=== PATIENT | male | born 1980 | race Caucasian/White ===

== ENCOUNTER 2021-05-24 17:48 | Emergency (ER) | payer MEDICARE, MEDICAID ==
[~2021-05-24] VITALS: Ht 170.2 cm; Wt 79.4 kg
[2021-05-24 23:23] VITALS: BP 124/82
[2021-05-24] MEDS ORDERED: KETOROLAC TROMETH 60MG/2ML VIAL IM ONE (23:30)
== END 2021-05-24 23:46 | disposition home or self-care (01) ==
LOC: ER 17:50
DX: K02.9 Dental caries, unspecified (principal)
CPT/HCPCS: 96372; 99283; J1885

== ENCOUNTER 2021-09-17 13:52 | Emergency (ER) | payer MEDICARE, MEDICAID ==
[~2021-09-17] VITALS: Ht 170.2 cm; Wt 79.4 kg
[2021-09-17 17:20] VITALS: BP 132/84
[2021-09-17 18:20] LABS: Urine Bacteria FEW /hpf (None Seen); Urine Blood 2+ /uL (Negative); Urine Specific Gravity 1.009 (1.001-1.035); Urine WBC 22 /hpf (0 - 3)
== END 2021-09-17 19:07 | disposition home or self-care (01) ==
LOC: ER 13:52
DX: N39.0 Urinary tract infection, site not specified (principal)
CPT/HCPCS: 76856; 76942; 81001; 99284; A4223; C1729; C1769; C2625

== ENCOUNTER 2021-09-23 12:46 | Emergency (ER) | payer MEDICARE, MEDICAID ==
[~2021-09-23] VITALS: Ht 170.2 cm; Wt 79.4 kg
[2021-09-23] MEDS ORDERED: ONDA-144 PO (14:49)
[2021-09-23 16:31] VITALS: BP 140/79
== END 2021-09-23 16:35 | disposition home or self-care (01) ==
LOC: ER 12:46
DX: R11.2 Nausea with vomiting, unspecified (principal); Z48.00 Encounter for change or removal of nonsurgical wound dressing

== ENCOUNTER 2021-09-30 20:53 | Emergency (ER) | payer MEDICARE, MEDICAID ==
[~2021-09-30] VITALS: Ht 170.2 cm; Wt 79.4 kg
[~2021-09-30 20:53] MED LIST: ONDA-144 PO
[2021-10-01 07:52] VITALS: BP 134/76
== END 2021-10-01 08:34 | disposition home or self-care (01) ==
LOC: ER 20:57
DX: T83.198A Other mechanical complication of other urinary devices and implants, initial encounter (principal); Y92.89 Other specified places as the place of occurrence of the external cause

== ENCOUNTER 2021-10-16 13:13 | Emergency (ER) | payer MEDICARE, MEDICAID ==
[~2021-10-16] VITALS: Ht 170.2 cm; Wt 81.6 kg
[2021-10-16 13:16] VITALS: BP 129/84
== END 2021-10-16 13:55 | disposition left against medical advice (07) ==
LOC: ER 13:13
DX: Z46.6 Encounter for fitting and adjustment of urinary device (principal); Z53.21 Procedure and treatment not carried out due to patient leaving prior to being seen by health care provider

== ENCOUNTER 2021-11-08 19:05 | Emergency (ER) | payer MEDICARE, MEDICAID ==
[~2021-11-08] VITALS: Ht 170.2 cm; Wt 81.6 kg
[2021-11-08 19:08] VITALS: BP 119/63
== END 2021-11-08 20:08 | disposition home or self-care (01) ==
LOC: ER 19:05
DX: T83.518A Infection and inflammatory reaction due to other urinary catheter, initial encounter (principal)

== ENCOUNTER 2022-08-26 11:02 | Emergency (ER) | payer MEDICARE, MEDICAID ==
[~2022-08-26] VITALS: Ht 170.2 cm; Wt 83.2 kg
[2022-08-26] MEDS ORDERED: ERY05OO OP (13:56)
[2022-08-26 15:12] VITALS: BP 125/90
== END 2022-08-26 13:57 | disposition home or self-care (01) ==
LOC: ER 11:02
DX: H00.012 Hordeolum externum right lower eyelid (principal)

== ENCOUNTER 2022-09-17 14:50 | Emergency (ER) | payer MEDICARE, MEDICAID ==
[~2022-09-17] VITALS: Ht 170.2 cm; Wt 82.6 kg
[~2022-09-17 14:50] MED LIST changes: +ERY05OO OP
[2022-09-17 15:59] VITALS: BP 126/79
[2022-09-17] MEDS ORDERED: BENZ100C19 PO ×2 (17:39→17:54)
[2022-09-17] MEDS ORDERED: IBUP800T26 PO ×2 (17:39→17:54)
[2022-09-17] MEDS ORDERED: LORA-483 GT ×2 (17:39→17:54)
== END 2022-09-17 17:58 | disposition home or self-care (01) ==
LOC: ER 14:50
DX: J02.8 Acute pharyngitis due to other specified organisms (principal); Z20.822 Contact with and (suspected) exposure to COVID-19
CPT/HCPCS: 36415; 87070; 87426; 87804; 87880

== ENCOUNTER 2023-02-11 19:58 | Emergency (ER) | payer MEDICARE, MEDICAID ==
[~2023-02-11] VITALS: Ht 170.2 cm; Wt 82.7 kg
[~2023-02-11 19:58] MED LIST changes: +BENZ100C19 PO; +IBUP-1455 PO; +LORA-483 GT
[2023-02-11 20:56] VITALS: BP 133/76
[2023-02-12] MEDS ORDERED: AMOX500T3 PO (00:28)
[2023-02-12] MEDS ORDERED: ONDANSETRON ODT 4 MG TAB PO ONE (00:30)
== END 2023-02-12 00:59 | disposition home or self-care (01) ==
LOC: ER 20:01
DX: J03.90 Acute tonsillitis, unspecified (principal); F41.9 Anxiety disorder, unspecified; F17.210 Nicotine dependence, cigarettes, uncomplicated; Z79.899 Other long term (current) drug therapy
CPT/HCPCS: 71045; 99283; Q0162

== ENCOUNTER 2023-09-09 19:22 | Inpatient (IN) | payer OTHER, MEDICAID ==
[~2023-09-09] VITALS: Ht 170.2 cm; Wt 180.0 kg
[~2023-09-09 19:22] MED LIST changes: +AMOX500T3 PO
[2023-09-09] MEDS ORDERED: IBUPROFEN 800 MG TAB PO ONE (19:45)
[2023-09-09] MEDS ORDERED: HYDROcodone-ACET 10/325MG TAB PO ONE (20:15)
[2023-09-09 22:38] LABS: Basophils # (auto) 0 10 ^3/uL (0-0.2); Basophils % (auto) 0.2 % (0.0-2.0); Eosinophils # (auto) 0 10 ^3/uL (0-0.8); Eosinophils % (auto) 0.1 % (0.0-7.0); Hematocrit 41.1 % (41.0-53.0); Hemoglobin 13.6 g/dL (13.5-17.5); Lymphocytes # (auto) 1.3 10 ^3/uL (0.4-5.4); Lymphocytes % (auto) 9.3 % (10.0-50.0); Mean Corpuscular Hemoglobin 30.3 pg (28.0-32.0); Mean Corpuscular Hgb Conc. 33.1 g/dL (32.0-36.0); Mean Corpuscular Volume 91.7 fL (80.0-100.0); Monocytes # (auto) 0.9 10 ^3/uL (0-1.3); Monocytes % (auto) 6.1 % (0.0-12.0); Neutrophils # (auto) 11.8 10 ^3/uL (1.6-8.6); Neutrophils % (auto) 84.3 % (37.0-80.0); Red Blood Cells 4.48 10^6/uL (4.5-5.90); Red Cell Distribution Width 13.2 % (11.8-14.3)
[2023-09-09 22:59] LABS: Alanine Aminotransferase 32 U/L (7-40); Albumin 4.7 g/dL (3.2-4.8); Alkaline Phosphatase 58 U/L (46-116); Anion Gap 13 (5-15); Aspartate Aminotransferase 24 U/L (13-40); BUN/Creatinine Ratio 10.9 (10.0-20.0); Bilirubin, Total 0.2 mg/dL (0.2-1.0); Blood Urea Nitrogen 11 mg/dL (9-23); Calcium 9.6 mg/dL (8.5-10.1); Carbon Dioxide 21 mmol/L (20-30); Chloride 104 mmol/L (98-107); Glucose 120 mg/dL (74-106); Sodium 138 mmol/L (136-145)
[2023-09-09] MEDS ORDERED: ACETAMINOPHEN 325 MG TAB PO PRN (23:00)
[2023-09-09] MEDS ORDERED: ONDANSETRON HCL 4 MG/2 ML VIAL IV PRN (23:00)
[2023-09-10] MEDS: HYDROcodone-ACET 5/325MG TAB PO PRN ×2 (02:59→11:52)
[2023-09-10 05:00] VITALS: BP 138/81; PULSE 84; RESP 19; TEMP 98.4; O2SAT 95
[2023-09-10] MEDS ORDERED: LEVOTHYROXINE SODIUM 25 MCG TAB PO SCH (07:00)
[2023-09-10 08:00] VITALS: PULSE 98; RESP 18
[2023-09-10 08:23] LABS: Basophils # (auto) 0 10 ^3/uL (0-0.2); Basophils % (auto) 0.4 % (0.0-2.0); Eosinophils # (auto) 0 10 ^3/uL (0-0.8); Eosinophils % (auto) 0.4 % (0.0-7.0); Hematocrit 37.5 % (41.0-53.0); Hemoglobin 12.7 g/dL (13.5-17.5); Lymphocytes # (auto) 1.4 10 ^3/uL (0.4-5.4); Lymphocytes % (auto) 13.4 % (10.0-50.0); Mean Corpuscular Hemoglobin 30.9 pg (28.0-32.0); Mean Corpuscular Volume 90.9 fL (80.0-100.0); Monocytes # (auto) 1.2 10 ^3/uL (0-1.3); Monocytes % (auto) 11.1 % (0.0-12.0); Neutrophils # (auto) 7.7 10 ^3/uL (1.6-8.6); Neutrophils % (auto) 74.7 % (37.0-80.0); Red Blood Cells 4.12 10^6/uL (4.5-5.90); Red Cell Distribution Width 13.4 % (11.8-14.3); White Blood Cell 10.4 10^3/uL (4.4-10.8)
[2023-09-10 08:33] LABS: Chloride 105 mmol/L (98-107); Potassium 3.9 mmol/L (3.5-5.1); Sodium 138 mmol/L (136-145)
[2023-09-10 08:34] LABS: Anion Gap 9 (5-15); Carbon Dioxide 24 mmol/L (20-30)
[2023-09-10 08:35] LABS: Calcium 9.1 mg/dL (8.5-10.1)
[2023-09-10 08:39] LABS: Glucose 99 mg/dL (74-106)
[2023-09-10 08:40] LABS: BUN/Creatinine Ratio 12.5 (10.0-20.0); Blood Urea Nitrogen 11 mg/dL (9-23)
[2023-09-10 09:00] VITALS: BP 149/83; PULSE 98; RESP 18; TEMP 98.3; O2SAT 95
[2023-09-10] MEDS ORDERED: FLUoxetine HCL 20 MG CAP PO SCH (10:00)
[2023-09-10 11:21] LABS: Magnesium 1.9 mg/dL (1.6-2.6)
[2023-09-10 13:52] VITALS: BP 141/78; PULSE 86; RESP 16; TEMP 98; O2SAT 94
[2023-09-10 16:26] VITALS: BP 145/82; PULSE 93; RESP 19; TEMP 98.9; O2SAT 93
== END 2023-09-10 20:45 | disposition home or self-care (01) | DRG 563 ==
LOC: ER 19:22 → OVERFLOW 22:51 → CENTRAL 09-10 03:22
PROVIDERS: ADMIT Internal Medicine; ATTEND Internal Medicine
DX: S52.122A Displaced fracture of head of left radius, initial encounter for closed fracture (principal); S52.121A Displaced fracture of head of right radius, initial encounter for closed fracture; F20.9 Schizophrenia, unspecified; F17.210 Nicotine dependence, cigarettes, uncomplicated; F41.9 Anxiety disorder, unspecified; E03.9 Hypothyroidism, unspecified; R56.9 Unspecified convulsions; W05.2XXA Fall from non-moving motorized mobility scooter, initial encounter; Y93.89 Activity, other specified; Y92.89 Other specified places as the place of occurrence of the external cause; Y99.8 Other external cause status
CPT/HCPCS: 36415; 71045; 73080; 80048; 80053; 83036; 83735; 84443; 84484; 85025; G0378

== ENCOUNTER → 2023-12-22 | Outpatient (CLI) | payer MEDICARE, MEDICAID ==
[~2023-12-22] MED LIST changes: +ALBUAER3 IN; +NABU-72 PO; +PRED20TA2 PO; +ZOFR4T PO
[2023-12-22 15:55] LABS: Urine Bacteria None Seen /hpf (None Seen)
[2023-12-22 16:16] LABS: Urine Blood Negative /uL (Negative); Urine Clarity Clear (Clear); Urine Color Light-Yellow (Yellow); Urine Protein, UAD Negative (Negative); Urine Specific Gravity 1.012 (1.001-1.035); Urine Urobilinogen Normal (Negative); Urine WBC 2 /hpf (0 - 3); Urine pH 5.5 (5.0-9.0)
[2023-12-22 16:38] LABS: Alanine Aminotransferase 26 U/L (7-40); Alkaline Phosphatase 65 U/L (46-116); Anion Gap 5 (5-15); Aspartate Aminotransferase 16 U/L (13-40); BUN/Creatinine Ratio 10.8 (10.0-20.0); Blood Urea Nitrogen 11 mg/dL (9-23); Calcium 9.8 mg/dL (8.7-10.4); Carbon Dioxide 28 mmol/L (20-30); Chloride 105 mmol/L (98-107); Glucose 96 mg/dL (74-106); Potassium 3.8 mmol/L (3.5-5.1); Sodium 138 mmol/L (136-145); Uric Acid 6.3 mg/dL (3.7-9.2)
[2023-12-22 16:39] LABS: Albumin 4.6 g/dL (3.2-4.8); Bilirubin, Total 0.3 mg/dL (0.2-1.0); Total Protein 7.2 g/dL (5.7-8.2)
[2023-12-22 16:42] LABS: Free T4 (Free Thyroxine) 1.3 ng/dL (0.89-1.76)
[2023-12-22 16:52] LABS: Triglycerides 205 mg/dL (< 150)
[2023-12-22 16:53] LABS: LDL Cholesterol 137 mg/dL (< 100)
[2023-12-22 16:54] LABS: Cholesterol 191 mg/dL (< 200); HDL Cholesterol 33 mg/dL (40-59)
[2023-12-22 17:00] LABS: Folate (Folic Acid) 42.69 ng/mL (>5.38)
== END | disposition home or self-care (01) ==
LOC: LAB 15:35
PROVIDERS: ATTEND Internal Medicine
DX: E61.2 Magnesium deficiency (principal); R78.89 Finding of other specified substances, not normally found in blood; E78.9 Disorder of lipoprotein metabolism, unspecified; R68.89 Other general symptoms and signs; R94.6 Abnormal results of thyroid function studies; E79.0 Hyperuricemia without signs of inflammatory arthritis and tophaceous disease; R82.90 Unspecified abnormal findings in urine; R82.991 Hypocitraturia; E85.9 Amyloidosis, unspecified; R82.79 Other abnormal findings on microbiological examination of urine; D51.9 Vitamin B12 deficiency anemia, unspecified; R73.09 Other abnormal glucose; E55.9 Vitamin D deficiency, unspecified
CPT/HCPCS: 36415; 80053; 80061; 81001; 82306; 82607; 82746; 83036; 84439; 84443; 84550; 87086

== ENCOUNTER 2024-01-01 11:58 | Emergency (ER) | payer MEDICARE, MEDICAID ==
[~2024-01-01] VITALS: Ht 170.2 cm; Wt 82.6 kg
[~2024-01-01 11:58] MED LIST changes: -ALBUAER3 IN; -NABU-72 PO; -PRED20TA2 PO; -ZOFR4T PO
[2024-01-01 13:32] VITALS: BP 131/84; PULSE 98; RESP 18; TEMP 98.9; O2SAT 97
[2024-01-01] MEDS: cefTRIAXone SOD 1,000 MG VL IM ONE (14:10)
[2024-01-01] MEDS: methylPREDNISolone SOD SUCC 125 MG/2 ML VL IM ONE (14:10)
[2024-01-01] MEDS ORDERED: ZOFR4T PO (14:23)
== END 2024-01-01 14:30 | disposition home or self-care (01) ==
LOC: ER 11:58
DX: J03.90 Acute tonsillitis, unspecified (principal); F17.210 Nicotine dependence, cigarettes, uncomplicated
CPT/HCPCS: 96372; 99284; J0696; J2930

== ENCOUNTER 2024-01-03 10:21 | Emergency (ER) | payer BC, MEDICAID ==
[~2024-01-03] VITALS: Ht 170.2 cm; Wt 85.2 kg
[~2024-01-03 10:21] MED LIST changes: +ZOFR4T PO
[2024-01-03] MEDS ORDERED: ALBUAER3 IN (14:53)
[2024-01-03] MEDS ORDERED: NABU-72 PO (14:53)
[2024-01-03] MEDS ORDERED: PRED20TA2 PO (14:53)
[2024-01-03] MEDS: ACETAMINOPHEN 500 MG TAB PO ONE (17:14)
[2024-01-03 17:31] VITALS: BP 121/71; PULSE 87; RESP 16; TEMP 98.7; O2SAT 97
== END 2024-01-03 17:15 | disposition home or self-care (01) ==
LOC: ER 10:21
DX: J03.90 Acute tonsillitis, unspecified (principal); F17.210 Nicotine dependence, cigarettes, uncomplicated; Z76.0 Encounter for issue of repeat prescription

== ENCOUNTER 2024-07-10 02:35 | Inpatient (IN) | payer BC, MEDICAID ==
[~2024-07-10] VITALS: Ht 170.2 cm; Wt 86.7 kg
[2024-07-10] VITALS (7 sets, daily range): BP systolic 115; BP diastolic 69; PULSE 75–123; RESP 16–22; TEMP 98.8; O2SAT 96–100
[~2024-07-10 02:35] MED LIST changes: +ALBUAER3 IN; +NABU-72 PO; +PRED20TA2 PO
[2024-07-10] MEDS: ALBUTEROL SULF 2.5 MG/0.5ML(0.5%) NEB SOLN NEB ONE (02:55)
[2024-07-10] MEDS: SODIUM CHLORIDE 0.9% 1,000 ML IV ONE (03:10)
[2024-07-10 03:14] LABS: Basophils # (auto) 0 10 ^3/uL (0-0.2); Basophils % (auto) 0.3 % (0.0-2.0); Eosinophils # (auto) 0.3 10 ^3/uL (0-0.8); Eosinophils % (auto) 2.8 % (0.0-7.0); Hematocrit 39.5 % (41.0-53.0); Hemoglobin 13.8 g/dL (13.5-17.5); Mean Corpuscular Hemoglobin 31.8 pg (28.0-32.0); Mean Corpuscular Hgb Conc. 34.8 g/dL (32.0-36.0); Mean Corpuscular Volume 91.3 fL (80.0-100.0); Monocytes # (auto) 0.8 10 ^3/uL (0-1.3); Monocytes % (auto) 8.7 % (0.0-12.0); Neutrophils % (auto) 66.2 % (37.0-80.0); Nucleated Red Blood Cells % 0.1 %; Platelet Count (auto) 286 10^3/uL (140-450); Red Blood Cells 4.33 10^6/uL (4.5-5.90); Red Cell Distribution Width 12.7 % (11.8-14.3)
[2024-07-10 03:17] LABS: Chloride 105 mmol/L (98-107); Potassium 3.6 mmol/L (3.5-5.1); Sodium 138 mmol/L (136-145)
--- NOTE | 2024-07-10 03:17 | ED.PDOC ---
History of Present Illness HPI Comments 44 year old male came to ER via EMS due to shortness of breath. Patient denies any medical problems, states he just had his dinner at 1800 hours then he started having shortness of breath which progressively worsened. Denies any acute chest pains, nausea or vomiting. On scene, patient saturating at 97% on room air and tachycardic at 120's bpm Chief Complaint: Shortness of Breath Time Seen by MD: 03:16 Primary Care Provider: JOSELINE Reviewed Notes: Nurses Notes Allergies: Coded Allergies: NO KNOWN ALLERGIES (Unverified , 05/24/21) Home Meds Active Scripts Albuterol Sulfate (VENTOLIN MDI) 90 Mcg Ih, 90 MCG IN Q4HPRN PRN, #1 INH Prov:EBEN PEREZP 01/03/24 Nabumetone (Nabumetone) 500 Mg Tab, 1 TAB PO BID PRN, #30 TAB Prov:EBEN PEREZ 01/03/24 Prednisone (Prednisone) 20 Mg Tab, 40 MG PO DAILY for 5 Days, #10 MG Prov:EBEN PEREZ 01/03/24 Ondansetron Odt 4MG Tab (ZOFRAN PO) 4 Mg Tb, 4 MG PO BID, #20 TAB ODT TAB-DISSOLVE IN MOUTH, THEN SWALLOW Prov:LORRAINE PECK PA 01/01/24 Amoxicillin Trihydrate (Amoxicillin) 500 Mg Tab, 1 TAB PO BID for 10 Days, #20 TAB 0 Refills Prov:CONSUELO PHAN 02/12/23 Ibuprofen Micronized (Ibuprofen) 800 Mg Tab, 800 MG PO Q8HPRN PRN, #30 TAB Prov:ALICIA DIGGS PAC 09/17/22 Benzonatate (Tessalon Perles) 100 Mg Cap, 1 CAP PO TID, #21 CAP Prov:ALICIA DIGGS PAC 09/17/22 Loratadine (CLARITIN TABLET) 10 Mg Tb, 10 MG GT DAILY for 14 Days, #14 TAB Prov:ALICIA DIGGS PAC 09/17/22 Erythromycin (Erythromycin) 5 Mg/Gm Oin, 1 MG OP QID for 10 Days, #1 OIN Prov:TINY NASH NP 08/26/22 Ondansetron (Zofran) 4 Mg Tab, 4 MG PO Q8HP PRN, #10 MG Prov:BRUEC MARTE MD 09/23/21 Information Source: Patient Mode of Arrival: Ambulatory Severity: Moderate Timing: Hours Duration: Since onset Prehospital treatment: None Past Medical History PAST MEDICAL HISTORY: Anxiety Surgical History: Denies all surgeries Family History Family History: Reviewed,noncontributory to illness Social History Smoker: Non-Smoker Alcohol: Denies ETOH Use Drugs: Denies Drug Use Lives In: Home Constitutional: denies: chills, diaphoresis, fatigue, fever, malaise, sweats, weakness, others EENTM: denies: blurred vision, double vision, ear bleeding, ear discharge, ear drainage, ear pain, ear ringing, eye pain, eye redness, hearing loss, mouth pain, mouth swelling, nasal discharge, nose bleeding, nose congestion, nose pain, photophobia, tearing, throat pain, throat swelling, voice changes, others Respiratory: reports: SOB at rest, shortness of breath; denies: cough, hemoptysis, orthopnea, SOB with excertion, stridor, wheezing, others Cardiovascular: denies: chest pain, dizzy spells, diaphoresis, Dyspnea on exertion, edema, irregular heart beat, left arm pain, lightheadedness, palpitations, PND, syncope, others Gastrointestinal: denies: abdomen distended, abdominal pain, blood streaked bowels, constipated, diarrhea, dysphagia, difficulty swallowing, hematemesis, melena, nausea, poor appetite, poor fluid intake, rectal bleeding, rectal pain, vomiting, others Genitourinary: denies: burning, dysuria, flank pain, frequency, hematuria, incontinence, penile discharge, penile sore, pain, testicle pain, testicle swelling, urgency, others Neurological: denies: dizziness, fainting, headache, left sided numbness, left sided weakness, numbness, paresthesia, pre-existing deficit, right sided numbness, right sided weakness, seizure, speech problems, tingling, tremors, weakness, others Musculoskeletal: denies: back pain, gout, joint pain, joint swelling, muscle pain, muscle stiffness, neck pain, others Integumetry: denies: bruises, change in color, change in hair/nails, dryness, laceration, lesions, lumps, rash, wounds, others Allergic/Immunocompromised: denies: Difficulty Healing, Frequent Infections, Hives, Itching, others Hematologic/Lymphatic: denies: anemia, blood clots, easy bleeding, easy bruising, swollen glands, others Endocrine: denies: excessive hunger, excessive sweating, excessive thirst, excessive urination, flushing, intolerance to cold, intolerance to heat, unexplained weight gain, unexplained weight loss, others Psychiatric: reports: anxiety; denies: bipolar disorder, depression, hopeless, panic disorder, schizophrenia, sleepless, suicidal, others Physical Exam General Appearance: No Apparent Distress, Normal HEENT: Normal ENT Inspection, Pharynx Normal, TMs Normal Neck: Full Range of Motion, Non-Tender, Normal, Normal Inspection Respiratory: Chest Non-Tender, Lungs Clear, No Accessory Muscle Use, No Respiratory Distress, Normal Breath Sounds Cardiovascular: No Edema, No JVD, No Murmur, No Gallop, Normal Peripheral Pulses, Tachycardia Breast Exam: Deferred Gastrointestinal: No Organomegaly, Non Tender, No Pulsatile Mass, Normal Bowel Sounds, Soft Genitalia: Deferred Pelvic: Deferred Rectal: Deferred Extremities: No calf tenderness, Normal capillary refill, Normal inspection, Normal range of motion, Non-tender, No pedal edema Musculoskeletal : Apperance: Normal Neurologic: Alert, surveyor instrument assistant II-XII nml as Tested, No Motor Deficits, Normal Affect, Normal Mood, No Sensory Deficits Cerebellar Function: Normal Reflexes: Normal Skin: Dry, Normal Color, Warm Lymphatic: No Adenopathy Was a procedure done? Was a procedure done?: No Differential Dx Considerations may include: anemia, electrolyte imbalance, anxiety, substance abuse, pulmonary emboli, dehydration X-Ray, Labs, Meds, VS Vital Signs Date Time Temp Pulse Resp B/P (MAP) Pulse Ox O2 Delivery O2 Flow Rate FiO2 07/10/24 03:10 123 20 146/83 (104) 99 07/10/24 03:10 123 20 99 Nasal Cannula* 3 32 07/10/24 02:55 22 99 Nasal Cannula* 2 28 07/10/24 02:39 98.6 121 20 146/102 (117) 97 07/10/24 02:38 118 Lab Test 07/10/24 03:50 07/10/24 02:55 Range/Units Urine Color Light-yellow Yellow Urine Clarity Clear Clear Urine pH 6.5 5.0-9.[address] 1.009 1.001-1.035 Urine Protein Negative Negative Urine Ketones Negative Negative Urine Blood Negative Negative /uL Urine Nitrite Negative Negative Urine Bilirubin Negative Negative Urine Urobilinogen Normal Negative mg/dL Urine Leukocyte Esterase 2+ Negative /uL Urine RBC 1 0 - 3 /hpf Urine WBC 19 0 - 3 /hpf Urine Squamous Epithelial Cells Few <5 /hpf Urine Bacteria None seen None Seen /hpf Urine Glucose Normal Normal mg/dL Troponin I High Sensitivity < 3 L < 3 L </=54 ng/L White Blood Count 9.0 4.4-10.8 10^3/uL Red Blood Count 4.33 L 4.5-5.90 10^6/uL Hemoglobin 13.8 13.5-17.5 g/dL Hematocrit 39.5 L 41.0-53.0 % Mean Corpuscular Volume 91.3 80.0-100.0 fL Mean Corpuscular Hemoglobin 31.8 28.0-32.0 pg Mean Corpuscular Hemoglobin Concent 34.8 32.0-36.0 g/dL Red Cell Distribution Width 12.7 11.8-14.3 % Platelet Count 286 140-450 10^3/uL Mean Platelet Volume 8.2 6.9-10.8 fL Neutrophils (%) (Auto) 66.2 37.0-80.0 % Lymphocytes (%) (Auto) 22.0 10.0-50.0 % Monocytes (%) (Auto) 8.7 0.0-12.0 % Eosinophils (%) (Auto) 2.8 0.0-7.0 % Basophils (%) (Auto) 0.3 0.0-2.0 % Neutrophils # (Auto) 6.0 1.6-8.6 10 ^3/uL Lymphocytes # (Auto) 2.0 0.4-5.4 10 ^3/uL Monocytes # (Auto) 0.8 0-1.3 10 ^3/uL Eosinophils # (Auto) 0.3 0-0.8 10 ^3/uL Basophils # (Auto) 0 0-0.2 10 ^3/uL Nucleated Red Blood Cells 0.1 % D-Dimer, Quantitative 0.37 0.0-0.49 mg/L FEU Sodium Level 138 136-145 mmol/L Potassium Level 3.6 3.5-5.1 mmol/L Chloride Level 105 98-107 mmol/L Carbon Dioxide Level 27 20-31 mmol/L Anion Gap 6 5-15 Blood Urea Nitrogen 8 L 9-23 mg/dL Creatinine 1.16 0.700-1.30 mg/dL Glomerular Filtration Rate Calc 80 >90 mL/min BUN/Creatinine Ratio 6.9 L 10.0-20.0 Serum Glucose 144 H 74-106 mg/dL Calcium Level 8.8 8.7-10.4 mg/dL Current Medications Medications (Trade) Dose Ordered Sig/Amaya Route Start Time Stop Time Status Last Admin Sodium Chloride 1,000 ml @ 1,000 mls/hr Q1H ONCE IV 07/10/24 02:45 07/10/24 03:44 DC 07/10/24 03:10 Albuterol (Ventolin Medneb) 5 mg ONCE ONCE NEB 07/10/24 02:45 07/10/24 02:46 DC 07/10/24 02:55 Time of 1ST Reevaluation: 03:11 Reevaluation 1ST: Unchanged Patient Education/Counseling: Diagnosis, Treatment Family Education/Counseling: No Family Present Departure 1 Departure Time of Disposition: 04:49 (Patient presented with acute shortness of breath concerning for acute on chronic COPD Exacerbation, Pneumonia, ACS, CHF, Pneumothorax. Less likely PE, Dissection. Data: 1. I ordered and reviewed the result of at least 3 labs including a CBC, BMP, and Troponin. 2. I independently interpreted the following tests: Chest X-ray shows benign chest .Risk:This patient has a high risk of morbidity due to further diagnostic testing or treatment and may suffer from respiratory or cardiac etiology . Workup reveals a likely lung disease versus cardiac etiology and patient should be admitted for further workup. and possible expert consultation.) Impression: Primary Impression: Shortness of breath Additional Impression: Chest pain Qualified Codes: R07.89 - Other chest pain Disposition: 09 ADMITTED INPATIENT Admit to: Med Surg Condition: Serious Critical Care Note Critical Care Time?: Yes (35 min-critical care time only) Critical care comment: Acute shortness of breath Authorized and Performed by: Farida Barajas MD Total critical care time: Approximately 36 minutes Due to a high probability of clinically significant, life threatening deterioration, the patient required my highest level of preparedness to intervene emergently and I personally spent this critical care time directly and personally managing the patient. This critical care time included obtaining a history; examining the patient; pulse oximetry; ordering and review of studies; arranging urgent treatment with development of a management plan; evaluation of patient's response to treatment; frequent reassessment; and, discussions with other providers. This critical care time was performed to assess and manage the high probability of imminent, life-threatening deterioration that could result in multi-organ failure. It was exclusive of separately billable procedures and treating other patients and teaching time. Please see my other sections and the rest of the note for further information on patient assessment and treatment. Stability Stability form required: No Heart Score Heart Score: Heart Score Response (Comments) Value History N/A 0 EKG N/A 0 Age N/A 0 Risk Factors N/A 0 Troponin N/A 0 Total 0 I personally scribed for FARIDA BARAJAS MD ([email or web address]) on 07/10/24 at 03:17. Electronically submitted by Janak Wyman ([email or web address]). FARIDA BARAJAS MD Jul 10, 2024 03:17
[2024-07-10 03:18] LABS: Anion Gap 6 (5-15); Calcium 8.8 mg/dL (8.7-10.4); Carbon Dioxide 27 mmol/L (20-31)
[2024-07-10 03:23] LABS: BUN/Creatinine Ratio 6.9 (10.0-20.0); Blood Urea Nitrogen 8 mg/dL (9-23); Glucose 144 mg/dL (74-106)
[2024-07-10 04:12] LABS: Urine Bacteria None Seen /hpf (None Seen)
[2024-07-10 04:35] LABS: Urine Blood Negative /uL (Negative); Urine Clarity Clear (Clear); Urine Color Light-Yellow (Yellow); Urine Protein, UAD Negative (Negative); Urine Specific Gravity 1.009 (1.001-1.035); Urine Urobilinogen Normal (Negative); Urine WBC 19 /hpf (0 - 3); Urine pH 6.5 (5.0-9.0)
--- NOTE | 2024-07-10 04:35 | DVH ---
Examination: CXRP Clinical Indication: sob Comparison: None. Technique: Frontal radiograph of the chest was obtained. Findings: Lungs are clear and well expanded with no pulmonary infiltrate or pleural effusion. There is no pneumothorax. The cardiomediastinal silhouette is within normal limits. No acute osseous abnormality is seen. Impression: No acute cardiopulmonary disease is seen. Electronically Signed 07/10/2024 04:26 sOiris Parada
[2024-07-10] MEDS ORDERED: ALBUTEROL SULF 2.5 MG/0.5ML(0.5%) NEB SOLN NEB PRN (10:00)
[2024-07-10] MEDS ORDERED: MORPHINE SULFATE INJ 2 MG/ml SYRG IV PRN (10:00)
[2024-07-10] MEDS ORDERED: ACETAMINOPHEN 325 MG TAB PO PRN (10:00)
--- NOTE | 2024-07-10 10:01 | DVHHP2 ---
History of Present Illness Reason for Visit: Shortness of breath History of Present Illness This 44-year-old male presents in the ED via EMS with a chief complaint of shortness of breath. The patient reports spontaneous shortness of breath right after dinner. At that time the patient's O2 saturation were at 97% on room air and heart rate is in 120s. The patient currently denies chest pain, shortness of breath, difficulty breathing, or other associated symptoms. Past medical history of anxiety and thyroid disease. Past Medical History As stated in HPI Past Surgical History Denies Family History Reviewed, non-contributory to the management of this case. Past Social History The patient lives at home, denies smoking, alcohol or illicit drugs abuse. Review of Systems Constitutional: Yes: Malaise; No: Fever, Chills, Sweats, Weakness, Other Eyes: No: Pain, Vision change, Conjunctivae inflammation, Eyelid inflammation, Other, Redness ENT: No: Ear pain, Ear discharge, Nose pain, Nose discharge, Nose congestion, Mouth pain, Mouth swelling, Throat pain, Throat swelling, Other Respiratory: Shortness of breath; No: Cough, Dry, SOB with excertion, Wheezing, Hemoptysis, Pleuritic Pain, Sputum, Wheezing, Other Cardiovascular: No: Chest Pain, Palpitations, Orthopnea, Paroxysmal Noc. Dyspnea, Edema, Lt Headedness, Other Gastrointestinal: No: Nausea, Vomiting, Abdominal Pain, Diarrhea, Constipation, Melena, Hematochezia, Other Genitourinary: No Dysuria, No Frequency, No Incontinence, No Hematuria, No Retention, No Other Musculoskeletal: No: other, neck pain, shoulder pain, arm pain, back pain, hand pain, leg pain, foot pain Skin: No: Rash, Lesions, Jaundice, Bruising, Other Allergies: Coded Allergies: NO KNOWN ALLERGIES (Unverified , 05/24/21) Exam Vital Signs Vital Signs Date Time Temp Pulse Resp B/P (MAP) Pulse Ox O2 Delivery O2 Flow Rate FiO2 07/10/24 06:00 103 16 125/78 (94) 96 07/10/24 03:10 Nasal Cannula* 3 32 07/10/24 02:39 98.6 General Appearance: Alert, Oriented X3, Cooperative, No acute distress HEENT: Atraumatic, PERRLA, EOMI, Mucous membr. moist/pink Respiratory: Clear to auscultation, Normal air movement Cardiovascular: Regular rate, Normal S1, Normal S2 Abdominal: Normal bowel sounds, Soft, No tenderness Extremities: No clubbing, No cyanosis, No edema, Normal pulses Skin: No rashes, No breakdown, No significant lesion Neuro: Normal speech, Strength at 5/5 X4 ext, Normal tone Psych/Mental Status: Mental status NL Labs/Xrays Labs Test 07/10/24 03:50 07/10/24 02:55 Range/Units Urine Color Light-yellow Yellow Urine Clarity Clear Clear Urine pH 6.5 5.0-9.0 Urine Specific [place] 1.009 1.001-1.035 Urine Protein Negative Negative Urine Ketones Negative Negative Urine Blood Negative Negative /uL Urine Nitrite Negative Negative Urine Bilirubin Negative Negative Urine Urobilinogen Normal Negative mg/dL Urine Leukocyte Esterase 2+ Negative /uL Urine RBC 1 0 - 3 /hpf Urine WBC 19 0 - 3 /hpf Urine Squamous Epithelial Cells Few <5 /hpf Urine Bacteria None seen None Seen /hpf Urine Glucose Normal Normal mg/dL Troponin I High Sensitivity < 3 L </=54 ng/L White Blood Count 9.0 4.4-10.8 10^3/uL Red Blood Count 4.33 L 4.5-5.90 10^6/uL Hemoglobin 13.8 13.5-17.5 g/dL Hematocrit 39.5 L 41.0-53.0 % Mean Corpuscular Volume 91.3 80.0-100.0 fL Mean Corpuscular Hemoglobin 31.8 28.0-32.0 pg Mean Corpuscular Hemoglobin Concent 34.8 32.0-36.0 g/dL Red Cell Distribution Width 12.7 11.8-14.3 % Platelet Count 286 140-450 10^3/uL Mean Platelet Volume 8.2 6.9-10.8 fL Neutrophils (%) (Auto) 66.2 37.0-80.0 % Lymphocytes (%) (Auto) 22.0 10.0-50.0 % Monocytes (%) (Auto) 8.7 0.0-12.0 % Eosinophils (%) (Auto) 2.8 0.0-7.0 % Basophils (%) (Auto) 0.3 0.0-2.0 % Neutrophils # (Auto) 6.0 1.6-8.6 10 ^3/uL Lymphocytes # (Auto) 2.0 0.4-5.4 10 ^3/uL Monocytes # (Auto) 0.8 0-1.3 10 ^3/uL Eosinophils # (Auto) 0.3 0-0.8 10 ^3/uL Basophils # (Auto) 0 0-0.2 10 ^3/uL Nucleated Red Blood Cells 0.1 % D-Dimer, Quantitative 0.37 0.0-0.49 mg/L FEU Sodium Level 138 136-145 mmol/L Potassium Level 3.6 3.5-5.1 mmol/L Chloride Level 105 98-107 mmol/L Carbon Dioxide Level 27 20-31 mmol/L Anion Gap 6 5-15 Blood Urea Nitrogen 8 L 9-23 mg/dL Creatinine 1.16 0.700-1.30 mg/dL Glomerular Filtration Rate Calc 80 >90 mL/min BUN/Creatinine Ratio 6.9 L 10.0-20.0 Serum Glucose 144 H 74-106 mg/dL Calcium Level 8.8 8.7-10.4 mg/dL PROCEDURE(s): CXRP - CHEST PORTABLE REASON: sob ORDER NUMBER(s): [id number], ACCESSION NUMBER(s): [id number] Examination: CXRP Clinical Indication: sob Comparison: None. Technique: Frontal radiograph of the chest was obtained. Findings: Lungs are clear and well expanded with no pulmonary infiltrate or pleural effusion. There is no pneumothorax. The cardiomediastinal silhouette is within normal limits. No acute osseous abnormality is seen. Impression: No acute cardiopulmonary disease is seen. Electronically Signed 07/10/2024 04:26 Osiris Parada Assessment/Plan Assessment/Plan # shortness of breath, possibly 2/2 to Anxiety Admit to medical unit Med neb treatment O2 supplement Consult as necessary # anxiety Continue fluoxetine # hypothyroidism Check TSH Continue with levothyroxine DVT prophylaxis Medical plan discussed with patient and RN Plan discussed with: Patient My Orders Orders - WOODY SOW MASSOTHERAPIST Procedure Category Date Status Time Albuterol Medneb PHA 07/10/24 Transmitted (Ventolin Medneb) 10:00 Admit ADMIT 07/10/24 Transmitted 09:57 Code Status CODE 07/10/24 Transmitted 09:57 Hydrocodone-Acet PHA 07/10/24 Transmitted 5/325mg Tab ([place] 10:00 Enoxaparin Sodium PHA 07/10/24 Transmitted (Lovenox) 10:00 Complete Blood Count LAB 07/11/24 Verified 04:00 Comprehensive LAB 07/11/24 Verified Metabolic Panel 04:00 Cardiac DIET 07/10/24 Transmitted Diet-2gna,Lofat,Lochol Lunch Condition: Fair LUIS M 07/10/24 Transmitted 09:57 Acetaminophen Tablet PHA 07/10/24 Transmitted (Tylenol Tablet) 10:00 Morphine Sulfate PHA 07/10/24 Transmitted Injection 10:00 Date of Service: Jul 10, 2024 Billing Provider: WOODY SOW Common Visit Codes: [id number] INP/OBS CARE (HIGH) WOODY SOW MASSOTHERAPIST Jul 10, 2024 10:01
[2024-07-10] MEDS ORDERED: IPRATROPIUM BROM 0.5 MG/2.5ML INH SOL NEB PRN (10:15)
[2024-07-10] MEDS ORDERED: LEVO137T3 PO (10:20)
[2024-07-10] MEDS ORDERED: FLUO-470 PO (10:20)
--- NOTE | 2024-07-10 10:32 | ECG ---
[facility] Test Date: 2024-07-10 Test Time: 02:38:45 Pat Name: RYDER PAIGE Department: ER Room: [facility]24[facility] Gender: M Evening Or Night Nurse Supervisor: DONOVAN : 1980 Requested By: FARIDA ARSHAD Order Number: [id number] Reading MD: Venu Arango Measurements Intervals [place] Rate: 118 P: 57 ND: 159 QRS: 76 QRSD: 83 T: 11 QT: 327 QTc: 459 Interpretive Statements Sinus tachycardia Ventricular premature complex Aberrant complex Probable left atrial enlargement Electronically Signed On 07-14-2024 14:25:26 PDT by Venu Arango Please click the below link to view image of tracing.
[2024-07-10 10:44] LABS: Triglycerides 265 mg/dL (< 150)
[2024-07-10 10:45] LABS: LDL Cholesterol 71 mg/dL (< 100)
[2024-07-10 10:46] LABS: Cholesterol 131 mg/dL (< 200); HDL Cholesterol 28 mg/dL (40-59)
[2024-07-10] MEDS: IPRATROPIUM BROM 0.5 MG/2.5ML INH SOL NEB SCH (12:54)
[2024-07-10] MEDS: ALBUTEROL SULF 2.5 MG/0.5ML(0.5%) NEB SOLN NEB SCH (12:55)
[2024-07-10] MEDS: ENOXAPARIN SOD 40 MG/0.4 ML SYRINGE SC SCH (12:56)
[2024-07-10] MEDS: HYDROcodone-ACET 5/325MG TAB PO PRN (18:32)
[2024-07-11] VITALS (8 sets, daily range): BP systolic 120–135; BP diastolic 72–79; PULSE 70–85; RESP 17–19; TEMP 97.8–98.4; O2SAT 94–99
[2024-07-11] MEDS: DOCUSATE SOD 100 MG CAP PO SCH (05:14)
[2024-07-11] MEDS: LEVALBUTEROL HCL 1.25 MG/3 ML NEB NEB SCH (05:41)
[2024-07-11 06:33] LABS: Basophils # (auto) 0 10 ^3/uL (0-0.2); Basophils % (auto) 0.1 % (0.0-2.0); Eosinophils # (auto) 0.1 10 ^3/uL (0-0.8); Eosinophils % (auto) 1.7 % (0.0-7.0); Hematocrit 40.8 % (41.0-53.0); Lymphocytes # (auto) 1.5 10 ^3/uL (0.4-5.4); Lymphocytes % (auto) 16.6 % (10.0-50.0); Mean Corpuscular Hemoglobin 31.6 pg (28.0-32.0); Mean Corpuscular Hgb Conc. 34.3 g/dL (32.0-36.0); Mean Corpuscular Volume 92.3 fL (80.0-100.0); Monocytes # (auto) 0.6 10 ^3/uL (0-1.3); Monocytes % (auto) 6.9 % (0.0-12.0); Neutrophils # (auto) 6.7 10 ^3/uL (1.6-8.6); Neutrophils % (auto) 74.7 % (37.0-80.0); Nucleated Red Blood Cells % 0.1 %; Platelet Count (auto) 237 10^3/uL (140-450); Red Blood Cells 4.42 10^6/uL (4.5-5.90); Red Cell Distribution Width 12.8 % (11.8-14.3); White Blood Cell 8.9 10^3/uL (4.4-10.8)
[2024-07-11 06:40] LABS: Alanine Aminotransferase 37 U/L (7-40); Alkaline Phosphatase 57 U/L (46-116); Anion Gap 4 (5-15); Aspartate Aminotransferase 16 U/L (13-40); BUN/Creatinine Ratio 8.7 (10.0-20.0); Bilirubin, Total 0.3 mg/dL (0.2-1.0); Blood Urea Nitrogen 8 mg/dL (9-23); Carbon Dioxide 30 mmol/L (20-31); Chloride 106 mmol/L (98-107); Glucose 91 mg/dL (74-106); Sodium 140 mmol/L (136-145)
[2024-07-11] MEDS ORDERED: PNEUMOCOCCAL VACC POLYS 25 MCG/0.5 ML VIAL IM ONE (13:15)
[2024-07-11] MEDS: INFLUENZA TRIVALENT 2024-2025 0.5 ML INJ IM ONE (13:46)
--- NOTE | 2024-07-11 19:55 | DVHDS2 ---
Discharge Summary Date of Admission Jul 10, 2024 at 09:57 Date of Discharge: Jul 11, 2024 Labs/Diagnostic Data: Laboratory Results Test 07/11/24 05:48 07/10/24 03:50 07/10/24 02:55 White Blood Count 8.9 10^3/uL (4.4-10.8) Red Blood Count 4.42 10^6/uL (4.5-5.90) Hemoglobin 14.0 g/dL (13.5-17.5) Hematocrit 40.8 % (41.0-53.0) Mean Corpuscular Volume 92.3 fL (80.0-100.0) Mean Corpuscular Hemoglobin 31.6 pg (28.0-32.0) Mean Corpuscular Hemoglobin Concent 34.3 g/dL (32.0-36.0) Red Cell Distribution Width 12.8 % (11.8-14.3) Platelet Count 237 10^3/uL (140-450) Mean Platelet Volume 8.4 fL (6.9-10.8) Neutrophils (%) (Auto) 74.7 % (37.0-80.0) Lymphocytes (%) (Auto) 16.6 % (10.0-50.0) Monocytes (%) (Auto) 6.9 % (0.0-12.0) Eosinophils (%) (Auto) 1.7 % (0.0-7.0) Basophils (%) (Auto) 0.1 % (0.0-2.0) Neutrophils # (Auto) 6.7 10 ^3/uL (1.6-8.6) Lymphocytes # (Auto) 1.5 10 ^3/uL (0.4-5.4) Monocytes # (Auto) 0.6 10 ^3/uL (0-1.3) Eosinophils # (Auto) 0.1 10 ^3/uL (0-0.8) Basophils # (Auto) 0 10 ^3/uL (0-0.2) Nucleated Red Blood Cells 0.1 % Sodium Level 140 mmol/L (136-145) Potassium Level 4.0 mmol/L (3.5-5.1) Chloride Level 106 mmol/L (98-107) Carbon Dioxide Level 30 mmol/L (20-31) Anion Gap 4 (5-15) Blood Urea Nitrogen 8 mg/dL (9-23) Creatinine 0.92 mg/dL (0.700-1.30) Glomerular Filtration Rate Calc 106 mL/min (>90) BUN/Creatinine Ratio 8.7 (10.0-20.0) Serum Glucose 91 mg/dL (74-106) Calcium Level 9.0 mg/dL (8.7-10.4) Total Bilirubin 0.3 mg/dL (0.2-1.0) Aspartate Amino Transferase (AST) 16 U/L (13-40) Alanine Aminotransferase (ALT) 37 U/L (7-40) Alkaline Phosphatase 57 U/L (46-116) Total Protein 6.0 g/dL (5.7-8.2) Albumin 4.0 g/dL (3.2-4.8) Urine Color Light-yellow (Yellow) Urine Clarity Clear (Clear) Urine pH 6.5 (5.0-9.0) Urine Specific [place] 1.009 (1.001-1.035) Urine Protein Negative (Negative) Urine Ketones Negative (Negative) Urine Blood Negative /uL (Negative) Urine Nitrite Negative (Negative) Urine Bilirubin Negative (Negative) Urine Urobilinogen Normal mg/dL (Negative) Urine Leukocyte Esterase 2+ /uL (Negative) Urine RBC 1 /hpf (0 - 3) Urine WBC 19 /hpf (0 - 3) Urine Squamous Epithelial Cells Few /hpf (<5) Urine Bacteria None seen /hpf (None Seen) Urine Glucose Normal mg/dL (Normal) Troponin I High Sensitivity < 3 ng/L (</=54) Triglycerides Level 265 mg/dL (< 150) Cholesterol Level 131 mg/dL (< 200) LDL Cholesterol 71 mg/dL (< 100) HDL Cholesterol 28 mg/dL (40-59) D-Dimer, Quantitative 0.37 mg/L FEU (0.0-0.49) Hemoglobin A1c 5.6 % A1C (<5.7) Thyroid Stimulating Hormone (TSH) 1.31 uIU/mL (0.55-4.78) Other Laboratory Tests 07/11/24 05:48 Brief Hx & Hospital Course: This 44-year-old male presents in the ED via EMS with a chief complaint of shortness of breath. The patient reports spontaneous shortness of breath right after dinner. At that time the patient's O2 saturation were at 97% on room air and heart rate is in 120s. The patient currently denies chest pain, shortness of breath, difficulty breathing, or other associated symptoms. Past medical history of anxiety and thyroid disease. All cardiac workup negative Condition at Discharge: Good Final Diagnosis/Problems List SOB non cardiac chest pain Discharge Disposition: Home Discharge Instruct/Medications Diet: Regular Diet comment: Increase fiber intake Activity: No Restrictions, As Tolerated Discharge Statement: "Patient was advised to return to the ER or call 911 if any headaches, dizziness, shortness of breath, chest pain, abdominal pain, bleeding, fevers, or worsening of medical condition. Patient was counseled about treatment plan, medications, possible side effects, patientverbalized understanding. All questions were answered to the best of my ability. This discharge took greater then 30 minutes in planning, reviewing documentation, counseling the patient, and discussing with other team members." ASSESSMENT ASSESSMENT Assessment SOB non cardiac chest pain Date of Service: Jul 11, 2024 Billing Provider: TERESA QUINTERO MD Common Visit Codes: 71501-KTM/OBS DISCH DAY >30min TERESA QUINTERO MD Jul 11, 2024 19:55
== END 2024-07-11 14:30 | disposition home or self-care (01) | DRG 313 ==
LOC: ER 02:35 → EDBD 02:35 → OVERFLOW 09:57 → EAST 07-11 03:15
PROVIDERS: ADMIT Registered Nurse; ATTEND Hospitalist
DX: R07.89 Other chest pain (principal); E03.9 Hypothyroidism, unspecified; F41.9 Anxiety disorder, unspecified; Z79.899 Other long term (current) drug therapy
CPT/HCPCS: 36415; 71045; 80048; 80053; 80061; 81001; 83036; 84443; 84484; 85025; 85379; 87081; 90656; 93005; 94640; 99291; G0378

== ENCOUNTER 2024-09-15 23:44 | Emergency (ER) | payer BC, MEDICAID ==
[~2024-09-15] VITALS: Ht 170.2 cm; Wt 86.0 kg
[~2024-09-15 23:44] MED LIST changes: +FLUO-470 PO; +LEVO137T3 PO
--- NOTE | 2024-09-16 00:02 | ED.PDOC ---
HPI Comments 44-year-old male who came to ER for chest pains. Patient states about 2 hours ago, he developed sudden onset of midsternal chest pains, sharp, nonradiating, associated with shortness of breath, nausea or vomiting. Patient appears very anxious at this time care Chief Complaint: Chest pain Time Seen by MD: 00:00 Primary Care Provider: JOSELINE Reviewed Notes: Nurses Notes, Nuclear Medicine Chief Technologist Notes Allergies: Coded Allergies: NO KNOWN ALLERGIES (Unverified , 05/24/21) Home Meds Active Scripts Albuterol Sulfate (VENTOLIN MDI) 90 Mcg Ih, 90 MCG IN Q4HPRN PRN, #1 INH Prov:EBEN PEREZ [employer] 01/03/24 Nabumetone (Nabumetone) 500 Mg Tab, 1 TAB PO BID PRN, #30 TAB Prov:EBEN PEREZP 01/03/24 Prednisone (Prednisone) 20 Mg Tab, 40 MG PO DAILY for 5 Days, #10 MG Prov:EBEN PEREZP 01/03/24 Ondansetron Odt 4MG Tab (ZOFRAN PO) 4 Mg Tb, 4 MG PO BID, #20 TAB ODT TAB-DISSOLVE IN MOUTH, THEN SWALLOW Prov:LORRAINE PECK PA 01/01/24 Amoxicillin Trihydrate (Amoxicillin) 500 Mg Tab, 1 TAB PO BID for 10 Days, #20 TAB 0 Refills Prov:CONSUELO PHAN 02/12/23 Ibuprofen Micronized (Ibuprofen) 800 Mg Tab, 800 MG PO Q8HPRN PRN, #30 TAB Prov:ALICIA DIGGS PAC 09/17/22 Benzonatate (Tessalon Perles) 100 Mg Cap, 1 CAP PO TID, #21 CAP Prov:ALICIA DIGGS PAC 09/17/22 Loratadine (CLARITIN TABLET) 10 Mg Tb, 10 MG GT DAILY for 14 Days, #14 TAB Prov:ALICIA DIGGS PAC 09/17/22 Erythromycin (Erythromycin) 5 Mg/Gm Oin, 1 MG OP QID for 10 Days, #1 OIN Prov:TINY NASH NP 08/26/22 Ondansetron (Zofran) 4 Mg Tab, 4 MG PO Q8HP PRN, #10 MG Prov:BRUCE MARTE MD 09/23/21 Reported Medications Fluoxetine HCl (Fluoxetine HCl) 20 Mg Cap, 2 CAP PO QAM 07/10/24 Levothyroxine Sodium (Levothyroxine Sodium) 137 Mcg Tab, 1 TAB PO DAILY 07/10/24 Information Source: Patient, Emergency Med Personnel Mode of Arrival: EMS Severity: Moderate Timing: Hours Duration: Intermittent Prehospital treatment: None Location: Substernal Radiation: No Radiation Quality: Sharp, Stabbing Onset: With Light Exertion Cardiac Risk Factors: HTN PE Risk Factors: None History of: None Associated Signs and Symptoms: SOB Past Medical History PAST MEDICAL HISTORY: Anxiety Past Medical History (Other): Heart murmur Surgical History: Denies all surgeries Family History Family History: Reviewed,noncontributory to illness Social History Smoker: Non-Smoker Alcohol: Denies ETOH Use Drugs: Denies Drug Use Lives In: Home Constitutional: denies: chills, diaphoresis, fatigue, fever, malaise, sweats, weakness, others EENTM: denies: blurred vision, double vision, ear bleeding, ear discharge, ear drainage, ear pain, ear ringing, eye pain, eye redness, hearing loss, mouth pain, mouth swelling, nasal discharge, nose bleeding, nose congestion, nose pain, photophobia, tearing, throat pain, throat swelling, voice changes, others Respiratory: reports: SOB at rest; denies: cough, hemoptysis, orthopnea, shortness of breath, SOB with excertion, stridor, wheezing, others Cardiovascular: reports: chest pain; denies: dizzy spells, diaphoresis, Dyspnea on exertion, edema, irregular heart beat, left arm pain, lightheadedness, palpitations, PND, syncope, others Gastrointestinal: reports: nausea, vomiting; denies: abdomen distended, abdominal pain, blood streaked bowels, constipated, diarrhea, dysphagia, difficulty swallowing, hematemesis, melena, poor appetite, poor fluid intake, rectal bleeding, rectal pain, others Genitourinary: denies: burning, dysuria, flank pain, frequency, hematuria, incontinence, penile discharge, penile sore, pain, testicle pain, testicle swelling, urgency, others Neurological: denies: dizziness, fainting, headache, left sided numbness, left sided weakness, numbness, paresthesia, pre-existing deficit, right sided n umbness, right sided weakness, seizure, speech problems, tingling, tremors, weakness, others Musculoskeletal: denies: back pain, gout, joint pain, joint swelling, muscle pain, muscle stiffness, neck pain, others Integumetry: denies: bruises, change in color, change in hair/nails, dryness, laceration, lesions, lumps, rash, wounds, others Allergic/Immunocompromised: denies: Difficulty Healing, Frequent Infections, Hives, Itching, others Hematologic/Lymphatic: denies: anemia, blood clots, easy bleeding, easy bruising, swollen glands, others Endocrine: denies: excessive hunger, excessive sweating, excessive thirst, excessive urination, flushing, intolerance to cold, intolerance to heat, unexplained weight gain, unexplained weight loss, others Psychiatric: reports: anxiety; denies: bipolar disorder, depression, hopeless, panic disorder, schizophrenia, sleepless, suicidal, others Physical Exam General Appearance: No Apparent Distress, Normal HEENT: Normal ENT Inspection, Pharynx Normal, TMs Normal Neck: Full Range of Motion, Non-Tender, Normal, Normal Inspection Respiratory: Chest Non-Tender, Lungs Clear, No Accessory Muscle Use, No Respiratory Distress, Normal Breath Sounds Cardiovascular: No Edema, No JVD, No Murmur, No Gallop, Normal Peripheral Pulses, Regular Rate/Rhythm Breast Exam: Deferred Gastrointestinal: No Organomegaly, Non Tender, No Pulsatile Mass, Normal Bowel Sounds, Soft Genitalia: Deferred Pelvic: Deferred Rectal: Deferred Extremities: No calf tenderness, Normal capillary refill, Normal inspection, Normal range of motion, Non-tender, No pedal edema Musculoskeletal : Apperance: Normal Neurologic: Alert, drum drier II-XII nml as Tested, No Motor Deficits, Normal Affect, Normal Mood, No Sensory Deficits Cerebellar Function: Normal Reflexes: Normal Skin: Dry, Normal Color, Warm Lymphatic: No Adenopathy EKG EKG : Pulse Rate (adult): 137 Cardiac Rhythm: ST Was a procedure done? Was a procedure done?: No CP Differential Dx Differential Diagnosis: Angina, Anxiety / Panic Attack, Hyperventilation Differential Diagnosis: Angina, Chest Wall Pain, Costochondritis, Esophageal reflux/spasm, Gastritis, Myocardial Infarction X-Ray, Labs, Meds, VS Vital Signs Date Time Temp Pulse Resp B/P (MAP) Pulse Ox O2 Delivery O2 Flow Rate FiO2 09/16/24 00:02 137 09/15/24 23:44 99.1 86 18 132/89 (103) 94 Lab Test 09/16/24 01:05 09/16/24 00:00 Range/Units Troponin I High Sensitivity < 3 L 3 L </=54 ng/L White Blood Count 5.1 4.4-10.8 10^3/uL Red Blood Count 4.71 4.5-5.90 10^6/uL Hemoglobin 14.6 13.5-17.5 g/dL Hematocrit 42.8 41.0-53.0 % Mean Corpuscular Volume 90.9 80.0-100.0 fL Mean Corpuscular Hemoglobin 31.0 28.0-32.0 pg Mean Corpuscular Hemoglobin Concent 34.1 32.0-36.0 g/dL Red Cell Distribution Width 13.4 11.8-14.3 % Platelet Count 237 140-450 10^3/uL Mean Platelet Volume 8.5 6.9-10.8 fL Neutrophils (%) (Auto) 59.5 37.0-80.0 % Lymphocytes (%) (Auto) 24.1 10.0-50.0 % Monocytes (%) (Auto) 15.3 H 0.0-12.0 % Eosinophils (%) (Auto) 0.7 0.0-7.0 % Basophils (%) (Auto) 0.4 0.0-2.0 % Neutrophils # (Auto) 3.1 1.6-8.6 10 ^3/uL Lymphocytes # (Auto) 1.2 0.4-5.4 10 ^3/uL Monocytes # (Auto) 0.8 0-1.3 10 ^3/uL Eosinophils # (Auto) 0 0-0.8 10 ^3/uL Basophils # (Auto) 0 0-0.2 10 ^3/uL Nucleated Red Blood Cells 0.0 % Sodium Level 137 136-145 mmol/L Potassium Level 3.7 3.5-5.1 mmol/L Chloride Level 103 98-107 mmol/L Carbon Dioxide Level 26 20-31 mmol/L Anion Gap 8 5-15 Blood Urea Nitrogen 11 9-23 mg/dL Creatinine 1.16 0.700-1.30 mg/dL Glomerular Filtration Rate Calc 80 >90 mL/min BUN/Creatinine Ratio 9.5 L 10.0-20.0 Serum Glucose 109 H 74-106 mg/dL Calcium Level 9.6 8.7-10.4 mg/dL Total Bilirubin 0.2 0.2-1.0 mg/dL Aspartate Amino Transferase (AST) 24 13-40 U/L Alanine Aminotransferase (ALT) 41 H 7-40 U/L Alkaline Phosphatase 57 46-116 U/L Total Protein 7.0 5.7-8.2 g/dL Albumin 4.7 3.2-4.8 g/dL Lipase 34 12-53 U/L Images Reviewed?: Images reviewed and evaluated by me Time of 1ST Reevaluation: 23:55 Reevaluation 1ST: Unchanged Time of 2ND Reevaluation: 01:00 Reevaluation 2ND: Improved Patient Education/Counseling: Diagnosis, Treatment Family Education/Counseling: No Family Present Departure 1 Departure Time of Disposition: 01:00 Impression: Primary Impression: Atypical chest pain Disposition: 01 HOME / SELF CARE / HOMELESS Condition: Stable Discharged With: Self Critical Care Note Critical Care Time?: No Stability Stability form required: No Heart Score Heart Score: Heart Score Response (Comments) Value History Slightly Suspicious 0 EKG Normal 0 Age <45 0 Risk Factors No known risk factors 0 Troponin Normal limit 0 Total 0 I personally scribed for AVTAR ROYAL MD ([email or web address]) on 09/16/24 at 00:02. Electronically submitted by Janak Wyman ([email or web address]). AVTAR ROYAL MD Sep 16, 2024 00:02
--- NOTE | 2024-09-16 00:11 | DVH ---
CHEST RADIOGRAPH Indication: chest pain Technique: Single frontal view of the chest was obtained Comparison: XY CHEST PORTABLE on DOS: 07/10/24, XY CHEST XRAY 1 VIEW on DOS: 09/10/23, XY CHEST REY BLE on DOS: 02/11/23 FINDINGS: Lines and Tubes: None Lungs: No focal consolidation. Pleura: No effusion. No pneumothorax. Cardiomediastinal contours: Unremarkable Bones: No acute osseous abnormality. IMPRESSION: No acute cardiopulmonary disease.
[2024-09-16 00:15] LABS: Basophils # (auto) 0 10 ^3/uL (0-0.2); Basophils % (auto) 0.4 % (0.0-2.0); Eosinophils # (auto) 0 10 ^3/uL (0-0.8); Eosinophils % (auto) 0.7 % (0.0-7.0); Hematocrit 42.8 % (41.0-53.0); Hemoglobin 14.6 g/dL (13.5-17.5); Lymphocytes # (auto) 1.2 10 ^3/uL (0.4-5.4); Lymphocytes % (auto) 24.1 % (10.0-50.0); Mean Corpuscular Hgb Conc. 34.1 g/dL (32.0-36.0); Mean Corpuscular Volume 90.9 fL (80.0-100.0); Monocytes # (auto) 0.8 10 ^3/uL (0-1.3); Monocytes % (auto) 15.3 % (0.0-12.0); Neutrophils # (auto) 3.1 10 ^3/uL (1.6-8.6); Neutrophils % (auto) 59.5 % (37.0-80.0); Platelet Count (auto) 237 10^3/uL (140-450); Red Blood Cells 4.71 10^6/uL (4.5-5.90); Red Cell Distribution Width 13.4 % (11.8-14.3); White Blood Cell 5.1 10^3/uL (4.4-10.8)
[2024-09-16 00:27] LABS: Albumin 4.7 g/dL (3.2-4.8); Alkaline Phosphatase 57 U/L (46-116); Anion Gap 8 (5-15); Aspartate Aminotransferase 24 U/L (13-40); BUN/Creatinine Ratio 9.5 (10.0-20.0); Blood Urea Nitrogen 11 mg/dL (9-23); Calcium 9.6 mg/dL (8.7-10.4); Carbon Dioxide 26 mmol/L (20-31); Chloride 103 mmol/L (98-107); Lipase 34 U/L (12-53); Potassium 3.7 mmol/L (3.5-5.1); Sodium 137 mmol/L (136-145)
[2024-09-16 00:28] LABS: Alanine Aminotransferase 41 U/L (7-40); Bilirubin, Total 0.2 mg/dL (0.2-1.0); Glucose 109 mg/dL (74-106)
[2024-09-16] MEDS: ONDANSETRON ODT 4 MG TAB PO ONE (04:29)
[2024-09-16] MEDS: HYDROcodone-ACET 10/325MG TAB PO ONE (04:30)
[2024-09-16] MEDS: FAMOTIDINE 20 MG TAB PO ONE (04:30)
[2024-09-16 04:32] VITALS: BP 126/88; PULSE 102; RESP 19; TEMP 98.3; O2SAT 98
--- NOTE | 2024-09-16 13:28 | ECG ---
[facility] Test Date: 2024-09-15 Test Time: 23:53:01 Pat Name: RYDER PAIGE Department: ER Room: Gender: M Agency Director: DONOVAN : 1980 Requested By: AVTAR ROYAL Order Number: [id number] Reading MD: Measurements Intervals [place] Rate: 98 P: 54 DE: 137 QRS: 69 QRSD: 93 T: 26 QT: 345 QTc: 441 Interpretive Statements Sinus rhythm Please click the below link to view image of tracing.
== END 2024-09-16 05:11 | disposition home or self-care (01) ==
LOC: ER 23:44 → EDBD 23:44 → ER 09-16 05:11
DX: R07.89 Other chest pain (principal); R06.02 Shortness of breath; R11.2 Nausea with vomiting, unspecified; F41.9 Anxiety disorder, unspecified; Z79.52 Long term (current) use of systemic steroids; Z79.899 Other long term (current) drug therapy
CPT/HCPCS: 36415; 71045; 80053; 83690; 84484; 85025; 93005